=== PATIENT | male | born 1985 | race Caucasian/White ===

== ENCOUNTER 2024-03-07 11:13 | Emergency (ER) | payer OTHER ==
[2024-03-07] MEDS ORDERED: HYDROCODONE/APAP 10/325 TAB ONE (11:27)
[2024-03-07] MEDS ORDERED: LIDOCAINE 1% 20 ML MDV ONE (11:31)
--- NOTE | 2024-03-07 11:59 | RAD REPORT ---
EXAM DESCRIPTION: CT - [id number] - 03/07/2024 11:30 am CLINICAL HISTORY: head injury COMPARISON: No comparisons TECHNIQUE: Axial thin cut noncontrast CT images of the head were obtained. Axial thin cut noncontrast CT images of the cervical spine were obtained. Multiplanar reformatted images were generated and reviewed. All CT scans are performed using dose optimization technique as appropriate and may include automated exposure control or mA/KV adjustment according to patient size. FINDINGS: CT HEAD WITHOUT CONTRAST: No acute hemorrhage, hydrocephalus or extra-axial collection is identified.No areas of brain edema or midline shift. The paranasal sinuses and mastoids are clear.The calvarium is intact. Right parietal scalp laceratio n and small hematoma. CT CERVICAL SPINE WITHOUT CONTRAST: No fracture or subluxation.No prevertebral soft tissues swelling is identified. IMPRESSION: No acute traumatic intracranial or cervical spine findings.
[2024-03-07] MEDS ORDERED: MORPHINE 4 MG/ML SYR ONE ×2 (12:37→12:52)
--- NOTE | 2024-03-07 12:48 | EDPHYS ---
Physician Documentation [facility] Name: Alexander Marques Age: 38 yrs Sex: Male : 1985 Arrival Date: 03/07/2024 Time: 11:13 Bed 19 Private MD: ED Physician Juan Bose HPI: 03/07 11:24 This 38 yrs old Male presents to ER via Ambulatory with complaints of Head ec2 Injury Without LOC-Adult. 11:24 Patient arrives today for evaluation after head strike. Patient reports that he had a ec2 large heavy iron struck him in the head, complaining of head and neck pain. Reports his last tetanus shot was approximately 1 year ago. Patient reports no loss of consciousness, no blood thinner use.. Historical: - Allergies: 11:18 No Known Allergies; ap3 - PMHx: 11:18 Chronic back pain; ap3 - Immunization history:: Adult Immunizations up to date. - Infectious Disease History:: Denies. - Social history:: Smoking status: Patient denies any tobacco usage or history of. ROS: 11:25 Constitutional: as per hpi ec2 Exam: 11:25 Constitutional: GEN: No acute distress HEENT: -Head: no deformities -Eyes: EOMI CV: ec2 regular rate LUNGS: no respiratory distress ABD: non-tender SKIN: Wound noted to left elbow, 1 cm in size. Good range of motion at the elbow. 4 cm laceration to the occiput. MSK: No C/T/L spine deformities, c-collar in place, C-spine TTP RUE w/o bony deformity LUE w/o bony deformity RLE w/o bony deformity LLE w/o bony deformity NEURO: moves all extremities equally, GCS 15 (E4, V5, M6) Vital Signs: 11:15 BP 144 / 110; Pulse 128; Resp 18; Pulse Ox 100% ; Weight 86.18 kg; Height 5 ft. 7 in. ; ap3 Pain 5/10; 11:42 BP 137 / 105; Pulse 119; Resp 19 S; Pulse Ox 99% on R/A; kc6 13:09 BP 125 / 78; Pulse 85; Resp 16; Temp 98.3(O); Pulse Ox 98% on R/A; Pain 4/10; tl4 11:15 Body Mass Index 29.76 (86.18 kg, 170.18 cm) ap3 11:15 Pain Scale: Adult ap3 13:09 Pain Scale: Adult tl4 Laceration: 11:57 Wound Repair of 8cm ( 3.1in ) subcutaneous laceration to scalp. Distal ec2 neuro/vascular/tendon intact. Wound prep: Extensive cleansing by nurse. Skin closed with 16 1-0 Ignacio using simple sutures and sterile technique. Dressed with non-adherent dressing. Patient tolerated well. MDM: 11:24 Patient medically screened. ec2 11:25 Data reviewed: vital signs. ED course: Patient arrives today for evaluation of a head ec2 injury. Examination remarkable for skin lacerations as noted above. Will obtain CT scan of the head and C-spine, will give the patient [place] for pain. Differential diagnose include C-spine fracture, intracranial brain bleed, laceration.. 11:57 ED course: I repaired the laceration with 16 ignacio.. ec2 12:13 ED course: CT scan of the head and C-spine showed no acute traumatic pathology. ec2 C-collar cleared. Will discharge home, have the patient return in 1 week for staple removal.. 13:09 ED course: MDM: Differential diagnosis as documented above in ED course; All tests ec2 ordered and reviewed as documented above; History gathered from independent historian: Yes; co-worker . 03/07 11:24 Order name: CT Head C Spine; Complete Time: 12:13 ec2 03/07 11:24 Order name: Wound Care; Complete Time: 11:57 ec2 Administered Medications: 11:41 Drug: [place] PO 10 mg-325 mg 1 tabs PO once Route: PO; kc6 12:29 Follow up: Response: No adverse reaction tl4 12:54 Drug: morphine IM 4 mg IM once Route: IM; Site: left deltoid; tl4 13:08 Follow up: Response: No adverse reaction; Pain is decreased tl4 Disposition Summary: 03/07/24 12:48 Discharge Ordered Notes: You will need to have the ignacio removed in 7 to 10 days. Location: Home ec2 Condition: Stable ec2 Diagnosis - Crushing injury of head, part unspecified ec2 - Scalp Laceration/ Open wound of scalp ec2 Followup: ec2 - With: Private Physician - When: - Reason: Re-evaluation by your physician Discharge Instructions: - Discharge Summary Sheet ec2 - Laceration Care, Adult, [id number] ec2 Forms: - Medication Reconciliation Form ec2 - Antibiotic Education ec2 - Prescription Opioid Use ec2 - Patient Portal Instructions ec2 - Leadership Thank You Letter ec2 Prescriptions: - methocarbamol 500 mg Oral tablet - take 2 tablets ORAL route 4 times per day; 30 tablet; Refills: 0, Product ec2 Selection Permitted Signatures: Dispatcher [employer] Selene Chavarria RN RN ap3 Gail Zacarias RN RN kc6 Juan Bose MD MD ec2 Jorge Williamson RN RN tl4 Corrections: (The following items were deleted from the chart) 11:29 11:16 Head Brain Wo [email or web address].[email or web address] ordered. [facility]
--- NOTE | 2024-03-07 12:48 | ER ---
Nurse's Notes [facility] Name: Alexander Marques Age: 38 yrs Sex: Male : 1985 Arrival Date: 03/07/2024 Time: 11:13 Bed 19 Private MD: Diagnosis: Crushing injury of head, part unspecified;Scalp Laceration/ Open wound of scalp Presentation: 03/07 11:15 Chief complaint: Patient states: he was working on a barn when a piece of iron fell ap3 approx 2 feet and hit him in the head. patient presents to the ED with a laceration to the top of his head. Coronavirus screen: At this time, the client does not indicate any symptoms associated with coronavirus-19. Ebola Screen: No symptoms or risks identified at this time. Initial Sepsis Screen: Does the patient meet any 2 criteria? No. Patient's initial sepsis screen is negative. Does the patient have a suspected source of infection? No. Patient's initial sepsis screen is negative. Risk Assessment: Do you want to hurt yourself or someone else? Patient reports no desire to harm self or others. Onset of symptoms was March 07, 2024 at 11:00. 11:15 Method Of Arrival: Ambulatory ap3 11:15 Acuity: LUIS A 2 ap3 Triage Assessment: 11:25 General: Appears uncomfortable, Behavior is calm, cooperative, appropriate for age. ap3 Pain: Complains of pain in scalp Pain currently is 5 out of 10 on a pain scale. Pain began suddenly. Neuro: Level of Consciousness is awake, alert, obeys commands, Oriented to person, place, time, situation, Gait is steady, Speech is normal. Cardiovascular: Patient's skin is warm and dry. Respiratory: Airway is patent Respiratory effort is even, unlabored, Respiratory pattern is regular, symmetrical. Historical: - Allergies: 11:18 No Known Allergies; ap3 - PMHx: 11:18 Chronic back pain; ap3 - Immunization history:: Adult Immunizations up to date. - Infectious Disease History:: Denies. - Social history:: Smoking status: Patient denies any tobacco usage or history of. Screenin:42 [facility] ED Fall Risk Assessment (Adult) History of falling in the last 3 months, kc6 including since admission No falls in past 3 months (0 pts) Confusion or Disorientation No (0 pts) Intoxicated or Sedated No (0 pts) Impaired Gait No (0 pts) Mobility Assist Device Used No (0 pt) Altered Elimination No (0 pt) Score/Fall Risk Level 0 - 2 = Low Risk. Abuse screen: Denies threats or abuse. Denies injuries from another. Nutritional screening: No deficits noted. Tuberculosis screening: No symptoms or risk factors identified. Assessment: 12:08 Reassessment: No changes from previously documented assessment. Patient and/or family tl4 updated on plan of care and expected duration. Pain level reassessed. Patient is alert, oriented x 3, equal unlabored respirations, skin warm/dry/pink. Vital Signs: 11:15 BP 144 / 110; Pulse 128; Resp 18; Pulse Ox 100% ; Weight 86.18 kg; Height 5 ft. 7 in. ; ap3 Pain 5/10; 11:42 BP 137 / 105; Pulse 119; Resp 19 S; Pulse Ox 99% on R/A; kc6 13:09 BP 125 / 78; Pulse 85; Resp 16; Temp 98.3(O); Pulse Ox 98% on R/A; Pain 4/10; tl4 11:15 Body Mass Index 29.76 (86.18 kg, 170.18 cm) ap3 11:15 Pain Scale: Adult ap3 13:09 Pain Scale: Adult tl4 ED Course: 11:14 Patient arrived in ED. im 11:15 Rigid cervical collar applied. ap3 11:18 Triage completed. ap3 11:24 Juan Bose MD is Attending Physician. ec2 11:26 Gail Zacarias, RN is Primary Nurse. kc6 11:30 CT Head C Spine In Process Unspecified. EDMS 11:43 Patient has correct armband on for positive identification. Bed in low position. Call kc6 light in reach. Side rails up X 1. Pulse ox on. NIBP on. Pillow given. 11:43 Arm band placed on. kc6 11:58 Assist provider with laceration repair on scalp using ernesto. Set up tray. Performed kc6 by Juan Bose MD Dressed with bulky Patient tolerated well. 12:58 Patient did not have IV access during this emergency room visit. ap3 13:08 Dressings: Nadeem 4X4s X 2; scalp. tl4 13:10 Provided Education on: ed process. tl4 Administered Medications: 11:41 Drug: [place] PO 10 mg-325 mg 1 tabs PO once Route: PO; kc6 12:29 Follow up: Response: No adverse reaction tl4 12:54 Drug: morphine IM 4 mg IM once Route: IM; Site: left deltoid; tl4 13:08 Follow up: Response: No adverse reaction; Pain is decreased tl4 Medication: 13:10 VIS not applicable for this client. tl4 Outcome: 12:48 Discharge ordered by . [email or web address] 12:58 Discharged to home ambulatory, with family, ap3 12:58 Condition: good 12:58 Discharge instructions given to patient, family, Instructed on discharge instructions, follow up and referral plans. medication usage, Demonstrated understanding of instructions, follow-up care, medications, Prescriptions given X 1, 13:10 Patient left the ED. tl4 Signatures: Dispatcher [employer] Selene Chavarria RN RN ap3 Gail Zacarias RN RN kc6 Maria L Sanon Edwin, MD MD ec2 Jorge Williamson RN RN tl4
[2024-03-07 13:31] VITALS: BP 125/78; TEMP 98.3; O2SAT 98
== END 2024-03-07 13:10 | disposition home or self-care (01) ==
LOC: ER 11:13
PROC: 0HQ0XZZ Repair Scalp Skin, External Approach (ICD-10-PCS; principal; 2024-03-07)
DX: S01.01XA Laceration without foreign body of scalp, initial encounter (principal)
CPT/HCPCS: 70450; 72125; 96372; 99284; 12004; J2001